=== PATIENT | male | born 1990 | race African-American/Black ===

== ENCOUNTER 2021-08-03 20:05 | Emergency (ER) | payer SELFPAY ==
[2021-08-03] MEDS ORDERED: Acetaminophen 325 MG TAB ONE (20:55)
[2021-08-03] MEDS ORDERED: Ibuprofen 200 MG TAB ONE (20:55)
[2021-08-03] MEDS ORDERED: Dicyclomine 20 MG/2 ML VIAL ONE (21:08)
== END 2021-08-03 21:30 | disposition home or self-care (01) ==
LOC: ERS 20:05
DX: U07.1 COVID-19 (principal); J06.9 Acute upper respiratory infection, unspecified; F17.210 Nicotine dependence, cigarettes, uncomplicated
CPT/HCPCS: 87804; 96372; 99283; J0500; U0003; U0005